=== PATIENT | female | born 1990 | race Two or more races ===

== ENCOUNTER 2019-04-23 17:18 | Inpatient (IN) | payer SELFPAY ==
[~2019-04-23] VITALS: Ht 157.5 cm; Wt 66.7 kg
[~2019-04-23 17:18] MED LIST: HYDR-3164 PO; NAPR-683 PO
[2019-04-23] MEDS: IV DEXTROSE 5%-LACT RINGERS 1,000 ML IV SCH (17:36)
[2019-04-23] MEDS ORDERED: ACETAMINOPHEN 325 MG TABLET. PO PRN ×2 (17:45→19:15)
[2019-04-23] MEDS ORDERED: 0.9 % SODIUM CHLORIDE 10 ML DISP.SYRIN. IV PRN ×2 (17:45→19:15)
[2019-04-23] MEDS ORDERED: IV RINGERS,LACTATED 500ML 500 ML IV PRN (17:45)
[2019-04-23] MEDS ORDERED: MAG HYDROX/ALUMINUM HYD/SIMETH 30 ML ORAL.SUSP PO PRN ×2 (17:45→19:15)
[2019-04-23] MEDS ORDERED: ONDANSETRON PF 4 MG/2 ML VIAL. IV PRN ×2 (17:45→19:15)
[2019-04-23 17:49] LABS: BILIRUBIN,URINE NEGATIVE (NEG); CLARITY,URINE CLOUDY; COLOR,URINE YELLOW; NITRITE,URINE NEGATIVE (NEG); PROTEIN,URINE NEGATIVE (NEG-TRACE); UROBILINOGEN,URINE 0.2 mg/dL (0.2 mg/dL)
[2019-04-23 18:04] LABS: BACTERIA,URINE MODERATE /HPF (0-FEW); RBC,URINE OCC /HPF (0-2); SQUAMOUS EPITHELIAL CELL,UR MOD /LPF; WBC,URINE 20-40 /HPF (0-4)
--- NOTE | 2019-04-23 18:33 | PDOC1 ---
OB - History Hx of Present Care: Good Care Ultrasounds: Other (later 3rd trimester sono) Obstetrical Complications: None Medical Complications: Other (Syphilis this ; Pt. states tested negative.) Past Family/Social History * Past Medical, Surgical, Family and Obstetric Histories reviewed from chart. Blood Type: O+ Rubella: Immune RPR/VDRL: Positive GBS Status: Negative HBsAG: Negative OB - Chief Complaint & HPI Date of Admission: Date of Admission: Apr 23, 2019 at 17:18 Chief Complaint/History : 2 Para: 1 EGA: 38 Reason for admission: observation, other (H/o Syphilis and received 2/3 injections Penicillin) Admission Nurse Assessment Rev: Yes OB - Admission Exam Physical Exam HEENT: Normal Heart: Regular Rate Lungs: Clear, Equal Abdomen: Gravid, Non tender, Soft Extremities: Edema Reflexes: Normal Cervical Dilatation: 1cm Effacement: 50% Station: -3 Membranes: Intact Heart Rate: Normal Accelerations: Accelerations Present Decelerations: No decelerations Contractions on Admission: 6-10 Minutes Apart Intensity: Mild Text A: 39 wks IUP H/o Syphilis this P: Observation overnight for 3rd treatment of syphilis and observation for possible labor. MICHELLE LEVIN Jr, MD Apr 23, 2019 18:33
[2019-04-23] MEDS ORDERED: PENICILLIN G BENZATHINE LA 2,400,000 UNIT/4 ML DISP.SYRIN. IM ONE (18:45)
[2019-04-23] MEDS: IV RINGERS,LACTATED 1000ML 1,000 ML IV SCH ×2 (19:01→19:41)
[2019-04-23] MEDS ORDERED: BUTORPHANOL 2 MG/ML VIAL. IV PRN ×2 (19:15)
[2019-04-23] MEDS ORDERED: NALBUPHINE 10 MG/ML AMPUL. IV PRN ×2 (19:15)
[2019-04-23] MEDS ORDERED: TERBUTALINE 1 MG/ML VIAL. SQ PRN (19:15)
[2019-04-23] MEDS ORDERED: LIDOCAINE 1% PF 30 ML VIAL. INJ PRN (19:15)
[2019-04-23] MEDS ORDERED: OXYTOCIN 30 UNIT/500 ML PREMIX 500 ML IV PRN ×3 (19:15)
[2019-04-23] MEDS ORDERED: CITRIC ACID/SODIUM CITRATE 30 ML SOLUTION. PO PRN (19:15)
[2019-04-23] MEDS ORDERED: IBUPROFEN 400 MG TABLET. PO PRN (19:15)
[2019-04-23] MEDS ORDERED: fentaNYL PF VIAL 100 MCG/2 ML VIAL IV PRN ×6 (19:15)
[2019-04-23] MEDS ORDERED: DOCUSATE SODIUM 283 MG/5 ML ENEMA. PR PRN (19:15)
[2019-04-23 20:00] LABS: BASO % 0 % (0-3); EOS # 0.1 x10^3/uL (0.0-0.7); EOS % 1 % (0-3); HEMATOCRIT 37.4 % (36.0-47.0); HEMOGLOBIN 13.1 g/dL (12.0-15.5); LYMPH # 2.3 x10^3/uL (1.0-4.8); LYMPH % 22 % (24-48); MEAN CORPUSCULAR HEMOGLOBIN 32 pg (25-35); MEAN CORPUSCULAR HGB CONC 35 g/dL (31-37); MEAN CORPUSCULAR VOLUME 93 fL (79-100); MONO # 0.7 x10^3/uL (0.0-1.1); MONO % 7 % (0-9); NEUT # 7.1 x10^3/uL (1.8-7.7); NEUT % 70 % (31-73); PLATELET COUNT 148 x10^3/uL (140-400); RED BLOOD COUNT 4.03 x10^6/uL (3.50-5.40); RED CELL DISTRIBUTION WIDTH 13.4 % (11.5-14.5); WHITE BLOOD COUNT 10.2 x10^3/uL (4.0-11.0)
[2019-04-23 20:32] LABS: AMPHETAMINE/METHAMPHETAMINE NEG (NEG); BARBITURATES NEG (NEG); BENZODIAZEPINES NEG (NEG); CANNABINOIDS NEG (NEG); COCAINE NEG (NEG); METHADONE NEG (NEG); OPIATES NEG (NEG); PHENCYCLIDINE NEG (NEG)
[2019-04-23 21:02] VITALS: BP 125/83
[2019-04-24] MEDS: IV RINGERS,LACTATED 1000ML 1,000 ML IV SCH ×3 (01:36→06:10)
[2019-04-24] MEDS: IV DEXTROSE 5%-LACT RINGERS 1,000 ML IV SCH ×2 (01:36→06:10)
[2019-04-24] MEDS ORDERED: OXYTOCIN PREMIX 30 UNIT/500 ML NS BAG. IV ONE (02:00)
[2019-04-24] MEDS ORDERED: oxyCODONE/APAP 5/325 1 TAB TABLET PO PRN (02:30)
[2019-04-24] MEDS ORDERED: MAGNESIUM HYDROXIDE 2,400 MG/30 ML ORAL.SUSP. PO PRN (02:30)
[2019-04-24] MEDS ORDERED: HYDROCORTISONE 1% TOPICAL OINTMENT 30GM TUBE. TP PRN (02:30)
[2019-04-24] MEDS ORDERED: MMR per PROTOCOL. MC PRN (02:30)
[2019-04-24] MEDS ORDERED: diphenhydrAMINE HCL 25 MG CAPSULE PO PRN (02:30)
[2019-04-24] MEDS ORDERED: OXYTOCIN 30 UNIT/500 ML PREMIX 500 ML IV PRN (02:30)
[2019-04-24] MEDS ORDERED: SIMETHICONE 80 MG TAB.CHEW PO PRN (02:30)
[2019-04-24] MEDS ORDERED: ACETAMINOPHEN 325 MG TABLET. PO PRN (02:30)
[2019-04-24] MEDS ORDERED: PHENYLEPH/MINERAL OIL/PETROLAT RECTAL OINTMENT TUBE. RC PRN (02:30)
[2019-04-24] MEDS ORDERED: MAG HYDROX/ALUMINUM HYD/SIMETH 30 ML ORAL.SUSP PO PRN (02:30)
[2019-04-24] MEDS ORDERED: BENZOCAINE 20% TOPICAL AEROSOL SPRAY 57GM CAN. TP PRN (02:30)
[2019-04-24] MEDS ORDERED: ZOLPIDEM 5 MG TABLET. PO PRN (02:30)
[2019-04-24] MEDS ORDERED: 0.9 % SODIUM CHLORIDE 10 ML DISP.SYRIN. IV PRN (02:30)
--- NOTE | 2019-04-24 02:30 | PDOC ---
VAGINAL DELIVERY DATE DATE: 04/24/19 TIME: 02:29 : 2 Para: 2 EGA: 38 VAGINAL DELIVERY: VTX VACCUM ASSISTED: No PLACENTA: Spontaneous 8/9 SEX: Female WEIGHT Weight [ 2870 gm] Nuchal Cord: Yes, Times 1 Amniotic Fluid: Clear PAIN: Natural EPISIOTOMY: No EXTENSION: No EBL 300 ml COMPLICATIONS none CONDITION pt. stable Signs of Intrauterine Infectio: None Shoulder Dystocia: No MICHELLE LEVIN Jr, MD Apr 24, 2019 02:30
[2019-04-24 05:25] VITALS: BP 108/69
[2019-04-24] MEDS: FERROUS SULFATE 325 MG TABLET. PO SCH (08:00)
[2019-04-24] MEDS: IBUPROFEN 400 MG TABLET. PO PRN ×2 (09:41→20:26)
[2019-04-24 09:53] VITALS: BP 118/72
[2019-04-24] MEDS: LEVOTHYROXINE 50 MCG TABLET PO SCH (20:26)
[2019-04-25 04:19] VITALS: BP 101/58
[2019-04-25 07:22] LABS: BASO % 0 % (0-3); EOS # 0.1 x10^3/uL (0.0-0.7); EOS % 1 % (0-3); HEMATOCRIT 32.1 % (36.0-47.0); HEMOGLOBIN 10.9 g/dL (12.0-15.5); LYMPH # 3.8 x10^3/uL (1.0-4.8); LYMPH % 30 % (24-48); MEAN CORPUSCULAR HEMOGLOBIN 32 pg (25-35); MEAN CORPUSCULAR HGB CONC 34 g/dL (31-37); MEAN CORPUSCULAR VOLUME 95 fL (79-100); MONO # 0.9 x10^3/uL (0.0-1.1); MONO % 7 % (0-9); NEUT # 7.6 x10^3/uL (1.8-7.7); NEUT % 61 % (31-73); PLATELET COUNT 126 x10^3/uL (140-400); RED CELL DISTRIBUTION WIDTH 13.4 % (11.5-14.5); WHITE BLOOD COUNT 12.5 x10^3/uL (4.0-11.0)
[2019-04-25 09:30] VITALS: BP 127/80
[2019-04-25] MEDS: IBUPROFEN 400 MG TABLET. PO PRN (09:32)
[2019-04-25] MEDS: DOCUSATE SODIUM 100 MG CAPSULE. PO PRN (09:32)
--- NOTE | 2019-04-25 09:58 | PDOC ---
Provider Note Provider Note Doing well VSS Uterus NTTP FU in AM FABI FELIZ MD Apr 25, 2019 09:58
[2019-04-25] MEDS: FERROUS SULFATE 325 MG TABLET. PO SCH (17:00)
[2019-04-25 17:34] VITALS: BP 116/74
[2019-04-25] MEDS: LEVOTHYROXINE 50 MCG TABLET PO SCH (20:47)
[2019-04-25 21:00] VITALS: BP_SYST 117; BP_SYST 119; BP_DIAS 51; BP_DIAS 73
[2019-04-26 04:00] VITALS: BP 119/77
[2019-04-26] MEDS: FERROUS SULFATE 325 MG TABLET. PO SCH (06:59)
[2019-04-26] MEDS: IBUPROFEN 400 MG TABLET. PO PRN ×2 (08:56→16:28)
[2019-04-26] MEDS: DOCUSATE SODIUM 100 MG CAPSULE. PO PRN (08:56)
[2019-04-26 11:26] VITALS: BP 114/78
--- NOTE | 2019-04-26 13:58 | PDOC3 ---
OB DISCHARGE SUMMARY DATE OF ADMISSION: 04/23/19 DATE OF DISCHARGE: 04/26/18 REASON FOR ADMISSION: Onset of labor PROCEDURES: Ultrasound INTRAPARTUM PROCEDURES: Spontanous Vag Deliv OPERATIONS: None DISCHARGE DIAGNOSIS: Term Delivered DISCHARGE INFORMATION: Activity, Diet HOSPITAL COURSE Unremarkable CONDITION AT DISCHARGE Stable FABI FELIZ MD Apr 26, 2019 13:58
[2019-04-26] MEDS ORDERED: NAPR-514 PO (14:00)
[2019-04-26] MEDS ORDERED: HYDR-3164 PO (14:00)
--- NOTE | 2019-04-26 16:21 | NUR ---
home instructions gone over with pt and signed peel oven tender was used and pt states understands may board and our boarder policy.
== END 2019-04-26 16:29 | disposition home or self-care (01) | DRG 807 ==
LOC: 3 SO LND 17:18 → OBSVTOIN 17:18 → 3 NORTH 04-24 05:20
PROVIDERS: ADMIT Obstetrics & Gynecology; ATTEND Obstetrics & Gynecology
PROC: 10E0XZZ Delivery of Products of Conception, External Approach (ICD-10-PCS; principal; 2019-04-24)
PROC: 10907ZC Drainage of Amniotic Fluid, Therapeutic from Products of Conception, Via Natural or Artificial Opening (ICD-10-PCS; 2019-04-24)
DX: O69.81X0 Labor and delivery complicated by cord around neck, without compression, not applicable or unspecified (principal); Z37.0 Single live birth; Z3A.39 39 weeks gestation of pregnancy
CPT/HCPCS: 36415; 80307; 81001; 85025; 86592; 86593; 86850; 86900; 86901; 87086; J0561; J2590; J7120; G0378